=== PATIENT | female | born 1955 | race Hispanic/Latino ===

== ENCOUNTER 2016-06-25 06:50 | Outpatient (CLI) | payer OTHER | END 2016-06-25 23:38 | disposition home or self-care (01) | LOC: CT 06:50 | DX: R10.12 Left upper quadrant pain (principal) ==

== ENCOUNTER 2016-07-15 07:16 | Day surgery (SDC) | payer OTHER | END 2016-07-15 10:15 | disposition home or self-care (01) | LOC: OR 07:16 | PROC: 0DB68ZZ Excision of Stomach, Via Natural or Artificial Opening Endoscopic (ICD-10-PCS; principal; 2016-07-15) | DX: K29.50 Unspecified chronic gastritis without bleeding (principal); K25.9 Gastric ulcer, unspecified as acute or chronic, without hemorrhage or perforation; R10.13 Epigastric pain | CPT/HCPCS: J2001; J2704 ==

== ENCOUNTER 2018-03-15 11:20 | Outpatient (CLI) | payer OTHER | END 2018-03-15 19:20 | disposition home or self-care (01) | LOC: RAD 11:20 | DX: M25.561 Pain in right knee (principal) ==

== ENCOUNTER 2018-04-15 08:23 | Outpatient (CLI) | payer OTHER | END 2018-04-15 19:29 | disposition home or self-care (01) | LOC: MRI 08:23 | DX: S43.80XA Sprain of other specified parts of unspecified shoulder girdle, initial encounter (principal); M19.019 Primary osteoarthritis, unspecified shoulder; M75.101 Unspecified rotator cuff tear or rupture of right shoulder, not specified as traumatic; M25.511 Pain in right shoulder ==

== ENCOUNTER 2018-04-28 10:47 | Inpatient (IN) | payer OTHER ==
[~2018-04-28] VITALS: Ht 154.9 cm; Wt 99.9 kg
[2018-04-28 12:24] LABS: PLATELET COUNT 441 K/uL (152-353)
[2018-04-28 12:32] LABS: POTASSIUM 4.7 mmol/L (3.6-5.2)
[2018-04-28 18:49] VITALS: BP 130/85; TEMP 98.4; Ht 154.9 cm; Wt 99.9 kg
[2018-04-28 20:21] VITALS: BP 153/78; TEMP 98.5
[2018-04-29] VITALS: BP 146/69; TEMP 98.5
[2018-04-29 04:00] VITALS: BP 139/67; TEMP 98.8
[2018-04-29 05:53] LABS: PLATELET COUNT 381 K/uL (152-353)
[2018-04-29 06:24] LABS: POTASSIUM 3.7 mmol/L (3.6-5.2)
[2018-04-29 08:00] VITALS: BP 135/63; TEMP 98.9
[2018-04-29] MEDS ORDERED: ONDA4TAB3 PO (09:38)
[2018-04-29] MEDS ORDERED: ALPR0.5T24 PO (09:39)
[2018-04-29] MEDS ORDERED: HYDR5TAB9 PO (09:40)
[2018-04-29] MEDS ORDERED: DOXEPIN HCL50 MG PO (09:41)
[2018-04-29] MEDS ORDERED: FURO20TA67 PO (09:41)
[2018-04-29] MEDS ORDERED: PROVENTIL (09:42)
[2018-04-29] MEDS ORDERED: COZAAR25 MG PO (09:43)
[2018-04-29] MEDS ORDERED: SIMV20TA2 PO (09:43)
[2018-04-29] MEDS ORDERED: RANI150T78 PO (09:44)
[2018-04-29] MEDS ORDERED: MONT10TA PO (09:45)
[2018-04-29] MEDS ORDERED: CLOP75TA2 PO (09:45)
[2018-04-29] MEDS ORDERED: METO-837 PO (09:46)
[2018-04-29] MEDS ORDERED: BUDE1AER5 INH (09:46)
[2018-04-29] MEDS ORDERED: PANTOPRAZOLE 40MG TA PO (09:47)
[2018-04-29] MEDS ORDERED: ALBUTEROL0.083 % INH (09:48)
[2018-04-29 12:10] VITALS: BP 126/55; TEMP 98.4
[2018-04-29 20:00] VITALS: BP 154/69; TEMP 98.8
[2018-04-30] VITALS: BP 113/55; TEMP 98.8
[2018-04-30 04:00] VITALS: BP 108/54; TEMP 98.8
[2018-04-30 06:03] LABS: PLATELET COUNT 319 K/uL (152-353)
[2018-04-30 06:25] LABS: POTASSIUM 3.9 mmol/L (3.6-5.2)
[2018-04-30 08:09] VITALS: BP 137/95; TEMP 97.7
[2018-04-30 12:05] VITALS: BP 119/57; TEMP 98.7
[2018-04-30 16:00] VITALS: BP 119/57; TEMP 98.7
[2018-04-30 20:00] VITALS: BP 119/55; TEMP 97.7
[2018-05-01] VITALS: BP 91/52; TEMP 98.5
[2018-05-01 04:00] VITALS: BP 128/53; TEMP 98.6
[2018-05-01 05:30] LABS: PLATELET COUNT 294 K/uL (152-353)
[2018-05-01 06:04] LABS: POTASSIUM 3.2 mmol/L (3.6-5.2)
[2018-05-01 08:06] VITALS: BP 104/48; TEMP 97.5
[2018-05-01 12:21] VITALS: BP 113/52; TEMP 98.4
[2018-05-01 16:01] VITALS: BP 114/55; TEMP 98.5
[2018-05-01 20:00] VITALS: BP 144/71; TEMP 98.7
[2018-05-02] VITALS: BP 123/52; TEMP 98.8
[2018-05-02 05:08] LABS: PLATELET COUNT 303 K/uL (152-353)
[2018-05-02 05:24] VITALS: BP 156/78; TEMP 98.6
[2018-05-02 05:28] LABS: POTASSIUM 3.6 mmol/L (3.6-5.2)
[2018-05-02 08:03] VITALS: BP 133/57; TEMP 98.7
[2018-05-02 12:06] VITALS: BP 125/55; TEMP 98.8
[2018-05-02 16:08] VITALS: BP 112/59; TEMP 98.7
== END 2018-05-02 17:45 | disposition home or self-care (01) | DRG 337 ==
LOC: RAD 10:47 → MED/SURG 15:32 → UNDODEPCLI 05-05 20:15
PROVIDERS: Emergency Medicine; Nurse Practitioner Family; ADMIT Emergency Medicine
PROC: 0DN80ZZ Release Small Intestine, Open Approach (ICD-10-PCS; principal; 2018-04-29)
DX: K56.50 Intestinal adhesions [bands], unspecified as to partial versus complete obstruction (principal); E78.49 Other hyperlipidemia; I10 Essential (primary) hypertension; K21.9 Gastro-esophageal reflux disease without esophagitis; F41.8 Other specified anxiety disorders; J44.9 Chronic obstructive pulmonary disease, unspecified
CPT/HCPCS: 36415; 74022; 80048; 80053; 82948; 85027; 86318; 94760; 96367; 96372; 96374; 99220; G0378; J0132; J0330; J1100; J1170; J1644; J2001; J2060; J2250; J2405; J2543; J2710; J2765; J3010; J3490

== ENCOUNTER 2018-05-17 08:26 | Outpatient (CLI) | payer OTHER ==
[~2018-05-17 08:26] MED LIST: ALBUTEROL0.083 % INH; ALPR0.5T24 PO; BUDE1AER5 INH; CLOP75TA2 PO; COZAAR25 MG PO; DOXEPIN HCL50 MG PO; FURO20TA67 PO; HYDR5TAB9 PO; METO-837 PO; MONT10TA PO; ONDA4TAB3 PO; PANTOPRAZOLE 40MG TA PO; PROVENTIL; RANI150T78 PO; SIMV20TA2 PO
== END 2018-05-17 19:01 | disposition home or self-care (01) ==
LOC: MRI 08:26
DX: M25.461 Effusion, right knee (principal); M17.11 Unilateral primary osteoarthritis, right knee; M25.561 Pain in right knee

== ENCOUNTER 2019-07-15 08:43 | Outpatient (CLI) | payer OTHER | END 2019-07-15 19:35 | disposition home or self-care (01) | LOC: US 08:43 | DX: R10.9 Unspecified abdominal pain (principal) ==